=== PATIENT | female | born 1980 | race Hispanic/Latino ===

== ENCOUNTER 2019-08-07 13:02 | Day surgery (SDC) | payer BC ==
[2019-08-07 13:40] VITALS: BP 125/86; TEMP 98.6; BMI 30.9
[2019-08-07 14:18] LABS: Amnisure Internal Control QC ACCEPTABLE (ACCEPTABLE); Amnisure Test No Membranes Rupture (No Rupture)
--- NOTE | 2019-08-07 15:43 | PRG ---
DATE OF SERVICE: 08/07/2019 TIME OF SERVICE: 1520 hours. PRESENTING COMPLAINT: Vaginal discharge, possible leaking fluid. HISTORY OF PRESENT ILLNESS: Ms. Holcomb is a 38-year-old 4, para 2, living 2, at 37 weeks with a due date of 09/22/2019. She sees Dr. Flores at [facility] She reports some vaginal discharge and is concerned that she may be leaking fluid. [employer]ING [employer] HISTORY: Miscarriage x1. Spontaneous vaginal delivery x2 at 36 and 40 weeks' gestation. Blood type A positive, antibody negative. Pap negative. Rubella immune. VDRL nonreactive. Hepatitis B, GC, and chlamydia negative. 50 g within normal limits. PAST MEDICAL HISTORY: None. PAST SURGICAL HISTORY: Appendectomy and D and C. ALLERGIES: NONE. MEDICATIONS: vitamins. SOCIAL HISTORY: Denies tobacco, alcohol, or drug use. FAMILY HISTORY: Noncontributory. REVIEW OF SYSTEMS: Noncontributory. PHYSICAL EXAMINATION: GENERAL: female, in no acute distress. VITAL SIGNS: Temperature 98.4, respirations 18, blood pressure 122/72, pulse 85. HEENT: Within normal limits. LUNGS: Clear to auscultation bilaterally. HEART: Regular rate and rhythm. BREASTS: No masses bilaterally. ABDOMEN: Soft, nontender. No rebound or guarding. PELVIC: Fundal height 36. FHTs 140s. Vulva without lesions. Vagina, slight discharge. AmniSure and VB3 collected. Cervix is 1, fingertip, and high cephalic. EXTREMITIES: Without clubbing, cyanosis, or edema. monitoring is carried out for greater than 30 minutes, which revealed category 1 heart rate tracing, 140s to 150s, baseline. AmniSure was negative. VB3 was positive for bacterial vaginosis. IMPRESSION: Bacterial vaginosis at 37 weeks' gestation. PLAN: Discharge home. Keep scheduled followup with Dr. Flores next week. Flagyl 500 p.o. b.i.d. x7 days. Job ID: [id number]
== END 2019-08-07 15:32 | disposition home health service (06) ==
LOC: L&D/OP 13:02
PROVIDERS: ATTEND Student in an Organized Health Care Education/Training Program
DX: O23.593 Infection of other part of genital tract in pregnancy, third trimester (principal); B96.89 Other specified bacterial agents as the cause of diseases classified elsewhere; O09.293 Supervision of pregnancy with other poor reproductive or obstetric history, third trimester; O09.523 Supervision of elderly multigravida, third trimester; Z3A.37 37 weeks gestation of pregnancy
CPT/HCPCS: 84112; 87480; 87510; 87660; 99285

== ENCOUNTER 2019-08-13 18:48 | Inpatient (IN) | payer BC ==
[~2019-08-13 18:48] MED LIST: Bupivacaine 0.25% HCL 30 ML VIAL ONE
[2019-08-13 19:35] VITALS: BMI 33.5
[2019-08-13] MEDS: Lactated Ringer's 1,000 ML IV SCH (20:20)
[2019-08-13] MEDS ORDERED: Lidocaine 1% (PF) 30 ML VIAL SC PRN (20:31)
[2019-08-13] MEDS ORDERED: hydrALAZINE 20 MG/ML VIAL SLOW IVP PRN (20:31)
[2019-08-13] MEDS ORDERED: NS / Oxytocin 40 units/1000ml 1,000 ML IV PRN (20:31)
[2019-08-13] MEDS ORDERED: Butorphanol Tartrate 1 MG/ML VIAL SLOW IVP PRN (20:31)
[2019-08-13] MEDS ORDERED: Ibuprofen 800 MG TAB PO PRN (20:31)
[2019-08-13] MEDS ORDERED: Diphenoxylate HCl/Atropine Tablet PO PRN (20:31)
[2019-08-13] MEDS ORDERED: Acetaminophen 500 MG TAB PO PRN (20:31)
[2019-08-13] MEDS ORDERED: HYDROcodone/Acetaminophen 5/325 mg Tablet PO PRN (20:31)
[2019-08-13] MEDS ORDERED: Misoprostol 200 MCG TAB PR PRN (20:31)
[2019-08-13] MEDS ORDERED: Promethazine HCl 25 MG/ML VIAL IM PRN (20:31)
[2019-08-13] MEDS ORDERED: Carboprost 250 MCG/ML AMP IM PRN (20:31)
[2019-08-13] MEDS ORDERED: Ondansetron PF 4 MG/2 ML Vial IVP PRN (20:31)
[2019-08-13] MEDS ORDERED: NS w/ Oxytocin 10 units 500 ML IV SCH (21:15)
[2019-08-13 21:23] LABS: Hemoglobin 11.7 g/dL (12.0-16.0); Mean Corpuscular HGB CONC 33.8 g/dL (32.0-36.0); Mean Corpuscular Hemoglobin 29.8 pg (27.0-31.0); Mean Corpuscular Volume 88.1 fL (78.0-98.0); Mean Platelet Volume 11.6 fL (7.4-10.4); Platelet Count 148 thou/uL (130-400); RBC Distribution Width 13.7 % (11.5-14.5); Red Blood Cell (RBC) Count 3.92 mill/uL (4.20-5.40); White Blood Cell (WBC) Count 8.6 thou/uL (4.8-10.8)
[2019-08-13 21:34] LABS: ALT (SGPT) 8 U/L (8-55); AST (SGOT) 11 U/L (5-34); Albumin 3.5 g/dL (3.5-5.0); Alkaline Phosphatase 216 U/L (40-110); Anion Gap 14 mmol/L (10-20); BUN (Urea Nitrogen) 14 mg/dL (7.0-18.7); Bilirubin, Total Less than 0.2 mg/dL (0.2-1.2); Calc. Creatinine Clearance 160 mL/min (70-130); Calcium 9.1 mg/dL (7.8-10.44); Carbon Dioxide 17 mmol/L (22-29); Chloride 109 mmol/L (98-107); Estimated GFR-MDRD Greater than 90; Globulin 2.8 g/dL (2.4-3.5); Glucose 72 mg/dL (70-105); Potassium 4.2 mmol/L (3.5-5.1); Protein, Total 6.3 g/dL (6.0-8.3); Sodium 136 mmol/L (136-145)
[2019-08-13] MEDS: Misoprostol 100 MCG TAB VAG SCH (21:50)
[2019-08-13 21:59] LABS: Syphilis Antibody Nonreactive (Nonreactive); Syphilis Antibody Index 0.04 S/CO (<1.00 Non-Reactive)
[2019-08-13 22:39] LABS: HBSAg Index 0.16 S/CO (0-0.99); Hep B Surf Ag Non-Reactive S/CO (NonReactive)
[2019-08-14] MEDS: Misoprostol 100 MCG TAB VAG SCH ×2 (01:28→11:39)
[2019-08-14] MEDS: Lactated Ringer's 1,000 ML IV SCH ×2 (02:26→06:07)
[2019-08-14] MEDS ORDERED: Fentanyl 4 mcg/Bup 0.1% Cadd 100 ML ONE (02:38)
--- NOTE | 2019-08-14 10:19 | PDOC.OPDEL ---
OB Operative/Delivery Note Delivery Dr/Surgeon: Sandra Assist: n/a Pre-Delivery Diagnosis: medically indicated induction Procedure/Post Delivery Dx: spontaneous vaginal delivery Weeks gestation: 38 Anesthesia: epidural - Findings A Sex: female - 1 min: 9 - 5 min: 9 - Additional Findings/Plan Placenta delivered: spontaneous Repaired Obstetrical Laceration: none Estimated blood loss: 400cc Compilations/Other Findings: NC x 2 tight Post delivery plan: routine recovery
--- NOTE | 2019-08-14 10:21 | PDOC.LDHP ---
Labor and Delivery H&P Chief complaint: scheduled induction HPI: 38yo at 38w0d by LMP here for IOL due to PIH. No sx PIH. + DELIO. Current gestational age (weeks): 38 Due date: 08/28/19 Dating criteria: last menstrual period Grav: 3 Para: 2 Current complications: none Abnormal US findings: No Current medications: pre-jaime vitamins Previous surgical history: none Allergies/Adverse Reactions: Allergies Allergy/AdvReac Type Severity Reaction Status Date / Time No Known Allergies Allergy Verified 08/13/19 19:34 Social history: none - Physical Exam Vital signs reviewed and normal: yes General: NAD Heart: RRR Lungs: CTAB Abdomen: gravid Extremeties: no edema FHT: category 1 [place] contractions every: 3min - Vaginal Exam cm dilated: 10 Effacement: 100% Station: 3+ - OB Labs Blood type: A RH: positive Antibody Screen: negative HIV: negative RPR: negative HEPSAg: negative 1 hour GCT: positive 3 hour GTT: neg GBS: unknown Urine drug screen: negative Rubella: immune - Assessment L&D Assessment: medically indicated induction - Plan Plan: admit to L&D, cervical ripening, labor augmentation if indicated, informed consent obtained, anesthesia consult for pain management
[2019-08-14] MEDS ORDERED: hydrALAZINE 20 MG/ML VIAL SLOW IVP PRN (10:40)
[2019-08-14] MEDS ORDERED: Milk Of Magnesia 30 ML UDCUP PO PRN (10:40)
[2019-08-14] MEDS ORDERED: Promethazine HCl 25 MG/ML VIAL IM PRN (10:40)
[2019-08-14] MEDS ORDERED: NS / Oxytocin 40 units/1000ml 1,000 ML IV SCH (10:40)
[2019-08-14] MEDS ORDERED: Lanolin Ointment 7 GM TUBE TOP PRN (10:40)
[2019-08-14] MEDS ORDERED: Preparation H Ointment 28 GM TUBE PR PRN (10:40)
[2019-08-14] MEDS ORDERED: diphenhydrAMINE 25 MG CAP PO PRN (10:40)
[2019-08-14] MEDS ORDERED: Benzocaine-Menthol 82.5 ML CAN TOP PRN (10:40)
[2019-08-14] MEDS ORDERED: Bisacodyl 10 MG SUPP PR PRN (10:40)
[2019-08-14] MEDS ORDERED: Ondansetron PF 4 MG/2 ML Vial IVP PRN (10:40)
[2019-08-14] MEDS ORDERED: HYDROcodone/Acetaminophen 5/325 mg Tablet PO PRN (10:40)
[2019-08-14] MEDS: Ferrous Sulfate 325 MG TAB PO SCH (11:41)
[2019-08-14] MEDS ORDERED: Sodium Chloride 0.9% 10 ML ONE (12:22)
[2019-08-14] MEDS: Ibuprofen 800 MG TAB PO SCH ×2 (13:32→22:00)
[2019-08-14] MEDS: Docusate Calcium (SURFAK) 240 MG CAP PO SCH (22:00)
[2019-08-15] MEDS: HYDROcodone/Acetaminophen 5/325 mg Tablet PO PRN ×2 (01:55→20:08)
[2019-08-15] MEDS: Ibuprofen 800 MG TAB PO SCH ×3 (05:56→21:52)
[2019-08-15] MEDS: Ferrous Sulfate 325 MG TAB PO SCH ×2 (08:41→09:28)
[2019-08-15] MEDS: Docusate Calcium (SURFAK) 240 MG CAP PO SCH ×2 (08:43→21:52)
[2019-08-15] MEDS ORDERED: Prenatal Vitamin 1 TAB PO SCH (09:00)
[2019-08-15] MEDS ORDERED: Adacel (T-DAP) 0.5 ML SYRINGE IM ONE (10:40)
--- NOTE | 2019-08-15 11:27 | PDOC.PP ---
Post Progress Note Post Day #: 1 PO intake tolerated: yes Flatus: yes Ambulation: yes Vital Signs (12 hours) Temp Pulse Resp BP Pulse Ox 08/15/19 08:03 98.4 F 72 20 124/75 98 08/15/19 04:24 98.2 F 80 16 133/77 97 08/15/19 00:55 98.1 F 75 19 117/81 97 Weight Weight 195 lb - Physical Examination General: NAD Abdominal: no distention, appropriately TTP Fundus firm & at: umb Skin: no rash Neurological: no gross focal deficits Psychiatric: normal affect Result Diagrams: 08/13/19 21:07 08/13/19 21:07 Additional Labs: Post Labs Blood Type A POSITIVE 08/13/19 21:07 Hep Bs Antigen Non-Reactive S/CO (NonReactive) 08/13/19 21:07 - Assessment/Plan PPD1 s/p TSVD GHTN- no sx PIH, BP wnl. Doing well, lochia < menses Rh pos RImm DC home FU 6w
[2019-08-15 21:03] VITALS: BP 132/86; TEMP 98.6
--- NOTE | 2019-08-16 05:56 | PDOC.BPN ---
- Brief Progress Note Patient not seen as DC held as courtesy for today as baby was not ready yesterday. I reviewed vitals and OK to resume DC order. I have reviewed care with her RN. Resume DC order placed yesterday.
[2019-08-16] MEDS: Ibuprofen 800 MG TAB PO SCH (06:21)
== END 2019-08-16 13:20 | disposition home or self-care (01) | DRG 807 ==
LOC: L&D/OP 18:48 → L&D-LIB 23:38 → 3SE 08-14 11:15
PROVIDERS: ADMIT Student in an Organized Health Care Education/Training Program; ATTEND Student in an Organized Health Care Education/Training Program
PROC: 10E0XZZ Delivery of Products of Conception, External Approach (ICD-10-PCS; principal; 2019-08-14)
PROC: 3E033VJ Introduction of Other Hormone into Peripheral Vein, Percutaneous Approach (ICD-10-PCS; 2019-08-14)
PROC: 3E0P7VZ Introduction of Hormone into Female Reproductive, Via Natural or Artificial Opening (ICD-10-PCS; 2019-08-14)
DX: O13.4 Gestational [pregnancy-induced] hypertension without significant proteinuria, complicating childbirth (principal); O69.1XX0 Labor and delivery complicated by cord around neck, with compression, not applicable or unspecified; Z37.0 Single live birth; Z3A.38 38 weeks gestation of pregnancy
CPT/HCPCS: 36415; 51702; 80053; 85027; 86780; 86850; 86900; 86901; 87340; S0020

== ENCOUNTER 2023-11-13 06:57 | Emergency (ER) | payer BC ==
[2023-11-13] MEDS ORDERED: Ondansetron PF 4 MG/2 ML Vial ONE (07:34)
[2023-11-13 07:46] LABS: #Basophils 0.08 10x3/uL (0.0-0.2); %Basophils 1.3 % (0.0-1.0); %Eosinophils 6.8 % (0.0-10.0); %Lymphocytes 30.7 % (21.0-51.0); %Monocytes 5.9 % (0.0-10.0); %Neutrophils 54.8 % (42.0-75.0); Hemoglobin 12.7 g/dL (12.0-16.0); Mean Corpuscular HGB CONC 33.4 g/dL (32.0-36.0); Mean Corpuscular Hemoglobin 29.7 pg (27.0-31.0); Mean Corpuscular Volume 88.8 fL (78.0-98.0); Mean Platelet Volume 10.8 fL (7.4-10.4); Platelet Count 296 10x3/uL (130-400); RBC Distribution Width 12.8 % (11.5-14.5); Red Blood Cell (RBC) Count 4.28 mill/uL (4.20-5.40)
[2023-11-13 08:10] LABS: ALT (SGPT) 13 U/L (8-55); AST (SGOT) 10 U/L (5-34); Albumin 3.8 g/dL (3.5-5.0); Alkaline Phosphatase 62 U/L (40-110); Anion Gap 14 mmol/L (10-20); BUN (Urea Nitrogen) 17 mg/dL (7.0-18.7); Bilirubin, Total 0.1 mg/dL (0.2-1.2); Calc. Creatinine Clearance 0 mL/min (70-130); Calcium 8.8 mg/dL (7.8-10.44); Carbon Dioxide 21 mmol/L (22-29); Chloride 109 mmol/L (98-107); Estimated GFR 106; Globulin 3.3 g/dL (2.4-3.5); Glucose 119 mg/dL (70-105); Potassium 4.2 mmol/L (3.5-5.1); Protein, Total 7.1 g/dL (6.0-8.3); Sodium 140 mmol/L (136-145)
[2023-11-13 08:47] LABS: BHCG - Serum Negative (NEGATIVE); Pregs Control Background? CLEAR/WHITE (CLR/WHITE); Pregs Control Bar Appear? YES (CONTROL BAR)
[2023-11-13 09:00] LABS: Troponin I Less than 0.010 ng/mL (< 0.028)
[2023-11-13] MEDS ORDERED: Ketorolac Tromethamine 30 MG (1 mL) VIAL ONE (10:25)
[2023-11-13] MEDS ORDERED: Metoclopramide HCl 10 MG (2 mL) VIAL ONE (10:25)
[2023-11-13 10:34] LABS: Bacteria/HPF None Seen HPF (None Seen); Bilirubin Negative (Negative); Blood, Urine 2+ (Negative); CAUTI Indications for Culture Pelvic or flank pain; Clarity Clear (Clear); Glucose, Urine (Dipstick) Normal (Negative); Ketone, Urine Negative (Negative); Leukocyte Negative Leu/uL (Negative); Nitrite Negative (Negative); Protein, Urine (Dipstick) Negative (Neg-Trace); RBC/HPF 0-3 HPF (0-3); Specific Gravity, Urine 1.022 (1.002-1.036); Squamous Epithelial 0-3 HPF (0-3); Urobilinogen Normal mg/dL (Less than 2); WBC/HPF 0-3 HPF (0-3)
[2023-11-13 10:35] LABS: Urine Culture Reflex No No
== END 2023-11-13 11:54 | disposition home or self-care (01) ==
LOC: ERS 06:57
DX: R55 Syncope and collapse (principal); R51.9 Headache, unspecified; Z55.6 Problems related to health literacy
CPT/HCPCS: 70450; 72125; 80053; 81001; 84484; 84703; 85025; 93005; 96374; 96375; J1885; J2405; J2765

== ENCOUNTER 2024-12-14 00:52 | Emergency (ER) | payer BC ==
[2024-12-14 02:05] LABS: #Basophils 0.09 10x3/uL (0.0-0.2); #Eosinophils 0.42 10x3/uL (0.0-0.7); #Monocytes 0.85 10x3/uL (0.11-0.59); #Neutrophils 5.83 10x3/uL (1.40-6.50); %Basophils 0.9 % (0.0-1.0); %Eosinophils 4.4 % (0.0-10.0); %Lymphocytes 24.5 % (21.0-51.0); %Monocytes 8.9 % (0.0-10.0); %Neutrophils 61.0 % (42.0-75.0); Hematocrit 36.3 % (36.0-47.0); Hemoglobin 11.9 g/dL (12.0-16.0); Mean Corpuscular Hemoglobin 28.6 pg (27.0-31.0); Mean Corpuscular Volume 87.3 fL (78.0-98.0); Platelet Count 309 10x3/uL (130-400); Red Blood Cell (RBC) Count 4.16 mill/uL (4.20-5.40); White Blood Cell (WBC) Count 9.56 10x3/uL (4.8-10.8)
[2024-12-14 02:14] LABS: BHCG - Serum Negative (NEGATIVE); Pregs Control Background? CLEAR/WHITE (CLR/WHITE); Pregs Control Bar Appear? YES (CONTROL BAR)
[2024-12-14 02:20] LABS: Bacteria/HPF None Seen HPF (None Seen); CAUTI Indications for Culture Alt mental st,lethar; Glucose, Urine (Dipstick) Normal (Negative); Leukocyte Negative Leu/uL (Negative); Protein, Urine (Dipstick) Negative (Neg-Trace); RBC/HPF 0-3 HPF (0-3); Specific Gravity, Urine 1.026 (1.002-1.036); WBC/HPF 0-3 HPF (0-3)
[2024-12-14 02:22] LABS: Urine Culture Reflex No No
[2024-12-14 02:26] LABS: ALT (SGPT) 13 U/L (Less than 34); AST (SGOT) 16 U/L (11-34); Albumin 4.6 g/dL (3.1-4.5); Alkaline Phosphatase 60 U/L (40-110); Anion Gap 14 mmol/L (10-20); BUN (Urea Nitrogen) 19 mg/dL (7.0-18.7); Bilirubin, Total 0.3 mg/dL (0.3-1.2); Calc. Creatinine Clearance 0 mL/min (70-130); Calcium 9.9 mg/dL (7.8-10.44); Carbon Dioxide 24 mmol/L (22-29); Chloride 105 mmol/L (98-107); Globulin 3.1 g/dL (2.4-3.5); Glucose 106 mg/dL (70-105); Potassium 3.5 mmol/L (3.5-5.1); Sodium 139 mmol/L (136-145)
[2024-12-14 02:26] LABS: Cocaine Metabolite Screen PRELIM POSITIVE (Negative); THC/Cannabinoid Screen Negative (Negative); Tricyclic Screen Negative (Negative)
[2024-12-14 03:38] LABS: Acetaminophen Less than 10 mcg/mL (Less than 10); Salicylate Less than 8.0 mg/dL (Less than 8.0)
== END 2024-12-14 06:45 | disposition home or self-care (01) ==
LOC: ERS 00:52
DX: R00.2 Palpitations (principal); R07.9 Chest pain, unspecified; F14.10 Cocaine abuse, uncomplicated
CPT/HCPCS: 36415; 71045; 80053; 80306; 80307; 81001; 84443; 84484; 84703; 85025; 93005; 96361; 96374; J2060